=== PATIENT | female | born 1950 | race Caucasian/White ===

== ENCOUNTER 2017-08-01 22:35 | Observation (INO) | payer MEDICARE, BC ==
[2017-08-01 23:28] LABS: CKMB 2.8 ng/mL (0-6.6); Troponin I Less than 0.010 ng/mL (< 0.028)
[2017-08-02 01:44] VITALS: BMI 33.1
[2017-08-02 02:35] LABS: Troponin I 0.016 ng/mL (< 0.028)
[2017-08-02] MEDS ORDERED: Acetaminophen 325 MG TAB PO PRN (03:42)
[2017-08-02] MEDS ORDERED: Aspirin 325 MG TAB PO SCH ×2 (04:00→08:00)
[2017-08-02 05:22] LABS: Cardiac Risk 5.3 (Less than 4.5)
--- NOTE | 2017-08-02 06:46 | HP ---
REASON FOR ADMISSION: Chest pain. HISTORY OF PRESENT ILLNESS: The patient gives history of having retrosternal pressure seizure-like episodes lasting 15 minutes which started on Tuesday. She had nearly 3 episodes, which came on without any exertion. She did not feel good after these episodes. These continued on Tuesday and Tuesday as well. Yesterday evening, patient developed right-sided chest and numbness, which concerned her with ongoing retrosternal pressure. She has been taking aspirin from Tuesday daily. No complaints of palpitation, PND, or orthopnea. Currently , she has no chest pressure or numbness. She states she has had a stress test done 8 years back, which was negative as far she knows. No complaints of cough or expectoration. No history of fever. No palpitation, PND, or orthopnea. PAST MEDICAL AND SURGICAL HISTORY: Hypertension, hysterectomy, left knee surgery. CURRENT MEDICATIONS: Amlodipine 10 mg daily, Toprol-XL 100 mg q.a.m., hydrochlorothiazide 12.5 mg p.o. q.a.m. ALLERGIES: No known drug allergies. PERSONAL HISTORY: Does not abuse alcohol or drugs. No history of smoking. FAMILY HISTORY: Mother lived up to 72 years. She has had history of diabetes and coronary artery disease. Father of [place] at the age of 82 years. The patient lives with her . CODE STATUS: FULL. JASMYN is her . REVIEW OF SYSTEMS: The following complete review of systems was negative, unless otherwise mentioned in the HPI or below: Constitutional: Weight loss or gain, ability to conduct usual activities. Skin: Rash, itching. Eyes: Double vision, pain. ENT/Mouth: Nose bleeding, neck stiffness, pain, tenderness. Cardiovascular: Palpitations, dyspnea on exertion, orthopnea. Respiratory: Shortness of breath, wheezing, cough, hemoptysis, fever or night sweats. Gastrointestinal: Poor appetite, abdominal pain, heartburn, nausea, vomiting, constipation, or diarrhea. Genitourinary: Urgency, frequency, dysuria, nocturia. Musculoskeletal: Pain, swelling. Neurologic/Psychiatric: Anxiety, depression. Allergy/Immunologic: Skin rash, bleeding tendency. PHYSICAL EXAMINATION: GENERAL: The patient is a 66-year-old female who is currently not in any acute distress. VITAL SIGNS: Blood pressure 170/88, pulse 72 per minute, respiratory rate 16 per minute, temperature 98.4 degrees Fahrenheit, saturating 97% on room air. NECK: Supple. No elevated JVD. HEENT: Eyes: Extraocular muscles intact. Pupils reacting to light. Oral cavity mucous membranes are moist. No exudates or congestion. CARDIOVASCULAR: S1, S2 heard. Regular rhythm. RESPIRATORY: Air entry 2+ bilateral. No rales or rhonchi. ABDOMEN: Soft, bowel sounds heard. No tenderness, rigidity, or guarding. EXTREMITIES: No peripheral edema or calf tenderness. VASCULAR SYSTEM: Peripheral pulses 2+ bilateral. No ischemic ulcerations or gangrene. CENTRAL NERVOUS SYSTEM: No gross focal deficits seen. Patient is alert, awake , oriented well. PSYCHIATRIC: The patient's mood is euthymic. No hallucinations or delusions. LABORATORY AND X-RAY FINDINGS: Chest x-ray done shows no acute thoracic findings. EKG done shows sinus rhythm at 79 beats per minute. There are nonspecific ST-T wave changes. Troponin x3 is negative. CK-MB 3.5. CK level is 234, albumin is 4.6. Lipase is 35. Electrolytes are stable. BUN 11, creatinine 0.8. White count of 7, H and H 14 and 40, platelet count 240,000 with 50% neutrophils, MCV is 80. CLINICAL IMPRESSION AND PLAN: The patient will be under observation on telemetry for chest pain, rule out acute coronary syndrome. This appears to be atypical. She has nonspecific ST-T wave changes on the EKG. We will follow acute coronary syndrome evidence based protocol and obtain a nuclear stress test. We will also obtain lipid profile this morning. We will continue her home medications including Toprol, hydrochlorothiazide, and Norvasc along with full dose aspirin for now. MTDD
[2017-08-02 08:00] VITALS: TEMP 98.1
[2017-08-02] MEDS ORDERED: Hydrochlorothiazide 25 MG TAB PO SCH (09:00)
[2017-08-02] MEDS ORDERED: Famotidine 20 MG TAB PO SCH (09:00)
[2017-08-02] MEDS ORDERED: Amlodipine 10 MG TAB PO SCH (09:00)
[2017-08-02] MEDS ORDERED: Fenofibrate 48 MG TAB PO SCH (09:00)
[2017-08-02] MEDS ORDERED: Enoxaparin Sodium 40 MG/0.4 ML SYRINGE SC SCH (09:00)
[2017-08-02] MEDS ORDERED: ADENOSINE 60 MG/20 ML VIAL ONE (09:44)
[2017-08-02 13:19] VITALS: BP 148/73
--- NOTE | 2017-08-02 13:57 | NM ---
MYOCARDIAL PERFUSION STUDY: Date: 08-02-17 History: Chest pain. History of hypertension. Radiopharmaceuticals: 30 mCi Technetium 99M Sestamibi, IV at stress and 9.8 mCi Technetium 99M Sestam ibi, IV at rest. Medications: 18 ml (53 mg) Adenosine IV. FINDINGS: There is normal uptake of radiotracer within the left ventricular myocardium on stress acquisition. N o reversible defects are seen between stress and resting acquisitions. Gated images show a normal fazal tricular wall motion and wall thickening. The calculated left ventricular ejection fraction is 66%. IMPRESSION: 1. Normal myocardial perfusion study without evidence of a reversible defect seen to suggest ischemia . 2. Normal LVEF of 66%. POS: [facility]
--- NOTE | 2017-08-03 02:38 | DIS ---
DATE OF ADMISSION: 08/01/2017 DATE OF DISCHARGE: 08/02/2017 DISCHARGE DIAGNOSES: 1. Chest pain. 2. Triglycerides. 3. Hypertension. HOSPITAL COURSE: The patient is a very pleasant 66-year-old female who initially presented to the [facility] with chest pressure. Troponins x3 were negative. Patient underwent a stress test with nuclea r imaging, which was negative. Patient currently is chest pain free. She was noted to have an eleva ash triglycerides of 251. Recommended patient to diet, exercise, and recheck her triglycerides in ab out 3 months by her PCP. Patient will be discharged home, follow up with PCP. PHYSICAL EXAMINATION: VITAL SIGNS: Temperature 98.1, 70, 14, 93% room air, 128/70. GENERAL: She is awake, alert, oriented x3, does not appear in distress. CARDIOVASCULAR: S1, S2 present. No murmurs, rubs, or gallops. ABDOMEN: Soft, nontender. Bowel sounds are present x2. EXTREMITIES: No edema. DISCHARGE MEDICATIONS: Are as the following, 1. Amlodipine 10 mg daily. 2. Metoprolol 100 mg daily. 3. Hydrochlorothiazide 12.5 mg daily.
== END 2017-08-02 14:52 | disposition home or self-care (01) ==
LOC: ERS 22:35 → 2SW 23:43
PROVIDERS: ADMIT Internal Medicine; ATTEND Internal Medicine
DX: R07.9 Chest pain, unspecified (principal); I10 Essential (primary) hypertension; Z79.899 Other long term (current) drug therapy
CPT/HCPCS: 78452; 80061; 82553; 84484 ×2; 93005; 93017; 99285; A9500; G0378; 36415; J0153; J1650

== ENCOUNTER 2020-06-25 10:20 | Outpatient (CLI) | payer MEDICARE, BC ==
[2020-06-25 12:16] LABS: #Basophils 0.1 10x3/uL (0.0-0.2); #Monocytes 0.6 10x3/uL (0.0-1.1); #Neutrophils 3.8 10x3/uL (1.5-8.4); %Basophils 0.9 % (0.0-2.0); %Eosinophils 0.6 % (0.0-6.0); %Lymphocytes 31.3 % (18.0-47.0); %Monocytes 8.9 % (0.0-10.0); Hemoglobin 13.3 g/dL (12.0-15.5); Mean Corpuscular HGB CONC 31.6 g/dL (32.0-36.0); Mean Corpuscular Hemoglobin 27.6 pg (27.0-33.0); Mean Corpuscular Volume 87.3 fl (81.6-98.3); Mean Platelet Volume 11.4 fl (7.4-10.4); Platelet Count 266 10x3/uL (150-450); RBC Distribution Width 13.5 % (11.5-14.5); Red Blood Cell (RBC) Count 4.82 10x6/uL (3.90-5.03); White Blood Cell (WBC) Count 6.5 10x3/uL (3.5-10.5)
[2020-06-25 12:35] LABS: Anion Gap 17 mmol/L (10-20); BUN (Urea Nitrogen) 15 mg/dL (9.8-20.1); Calc. Creatinine Clearance 0 mL/min (70-130); Calcium 9.7 mg/dL (7.8-10.44); Carbon Dioxide 28 mmol/L (23-31); Chloride 101 mmol/L (98-107); Glucose 98 mg/dL (83-110); Potassium 4.2 mmol/L (3.5-5.1); Sodium 142 mmol/L (136-145)
[2020-06-25 12:36] LABS: Prothrombin Time 10.8 sec (9.5-12.1)
[2020-06-25 12:42] LABS: Bilirubin Neg (Negative); Blood, Urine 10 (Negative); Clarity Clear (Clear); Glucose, Urine (Dipstick) Normal (Negative); Ketone, Urine Negative (Negative); Leukocyte Negative (Negative); Nitrite Negative (Negative); Protein, Urine (Dipstick) Negative (Neg-Trace); Specific Gravity, Urine 1.005 (1.002-1.036); Urobilinogen Normal mg/dL (Less than 2)
[2020-06-25 13:12] LABS: Bacteria/HPF None Seen HPF (None Seen); RBC/HPF 0-3 HPF (0-3); Squamous Epithelial None Seen HPF (0-3); WBC/HPF None Seen HPF (0-3)
[2020-06-25 18:21] LABS: SARS-CoV-2 PCR by NAA Not Detected (NotDetected)
== END 2020-06-25 10:21 | disposition home or self-care (01) ==
LOC: LABBT 10:20
PROVIDERS: ATTEND Orthopaedic Surgery
DX: Z01.818 Encounter for other preprocedural examination (principal); Z20.822 Contact with and (suspected) exposure to COVID-19; M17.12 Unilateral primary osteoarthritis, left knee
CPT/HCPCS: 80048; 81001; 85025; 85610; 87081; 93005; U0003; U0005; 87635; 93010

== ENCOUNTER 2020-06-30 05:33 | Inpatient (IN) | payer MEDICARE, BC ==
[2020-06-27 12:11] VITALS: BMI 34.2
[2020-06-30] MEDS ORDERED: Vancomycin 1.5 GRAM/300 ML BAG 1.5 GM in Premix Bag 1 BAG IVPB SCH (06:15)
[2020-06-30] MEDS ORDERED: Midazolam HCl 2 mg/2 ml Vial ONE (06:39)
[2020-06-30] MEDS ORDERED: Fentanyl 100 MCG/2 ML VIAL ONE ×3 (06:39→08:37)
[2020-06-30] MEDS ORDERED: Lidocaine 1% (PF) 30 ML VIAL ONE (06:45)
[2020-06-30] MEDS ORDERED: Tranexamic Acid 1,000 MG/10 ML VIAL ONE (06:52)
[2020-06-30] MEDS ORDERED: Sodium Chloride 0.9% 100 ML ONE (06:53)
[2020-06-30] MEDS ORDERED: Fat Emulsion 250 ML ONE (06:56)
[2020-06-30] MEDS ORDERED: diphenhydrAMINE 25 MG CAP PO PRN (07:04)
[2020-06-30] MEDS ORDERED: Acetaminophen 325 MG TAB PO PRN (07:04)
[2020-06-30] MEDS ORDERED: Zolpidem Tartrate 5 MG TAB PO PRN ×2 (07:04→09:30)
[2020-06-30] MEDS ORDERED: Ondansetron PF 4 MG/2 ML Vial IVP PRN ×2 (07:04→09:30)
[2020-06-30] MEDS ORDERED: Promethazine HCl 25 MG/ML VIAL IM PRN ×3 (07:04→10:33)
[2020-06-30] MEDS ORDERED: HYDROcodone/Acetaminophen 10/325 mg Tablet PO PRN ×4 (07:04→09:30)
[2020-06-30] MEDS ORDERED: Fentanyl 100 MCG/2 ML VIAL SLOW IVP PRN ×2 (07:04)
[2020-06-30] MEDS ORDERED: Sodium Chloride 0.9% 10 ML ONE (07:17)
[2020-06-30] MEDS ORDERED: Ropivacaine 0.5% HCl/PF (150 MG/30 ML VIAL) ONE (07:46)
[2020-06-30] MEDS ORDERED: PROPOFOL 200 MG/20 ML VIAL ONE (07:46)
[2020-06-30] MEDS ORDERED: Dexamethasone 20 MG/5 ML VIAL ONE (07:46)
[2020-06-30] MEDS ORDERED: Ropivacaine 2% HCl/PF (20 MG/10 ML VIAL) ONE (07:46)
[2020-06-30] MEDS ORDERED: PHENYLEPHRINE-NS 100 MCG/ML 10 ML SYRINGE ONE (07:46)
[2020-06-30] MEDS ORDERED: Ketorolac Tromethamine 30 MG/ML VIAL ONE (07:46)
[2020-06-30] MEDS ORDERED: Ondansetron PF 4 MG/2 ML Vial ONE (07:46)
[2020-06-30] MEDS ORDERED: traMADol HCl 50 MG TAB PO PRN (09:30)
[2020-06-30] MEDS ORDERED: Ropivacaine HCl/PF 250 ML in Premix Bag 1 BAG NERVE BLCK SCH (09:30)
[2020-06-30] MEDS ORDERED: Fentanyl 100 MCG/2 ML VIAL IV PRN (09:30)
[2020-06-30] MEDS ORDERED: Promethazine HCl 25 MG/ML VIAL SLOW IVP PRN (10:33)
[2020-06-30] MEDS ORDERED: PACU-Morphine 4MG/ML VIAL SLOW IVP PRN (10:33)
[2020-06-30] MEDS ORDERED: Ketorolac Tromethamine 30 MG/ML VIAL IVP SCH (14:00)
[2020-06-30] MEDS: CEFAZOLIN 2 GM in Premix Bag 1 BAG IVPB SCH ×2 (14:07→21:31)
[2020-06-30] MEDS: Sodium Chloride 0.9% 1,000 ML IV SCH ×2 (14:08→20:12)
[2020-06-30] MEDS: Ketorolac Tromethamine 30 MG/ML VIAL IVP SCH ×3 (14:08→23:58)
[2020-06-30] MEDS: Amlodipine 10 MG TAB PO SCH (14:09)
[2020-06-30] MEDS: Hydrochlorothiazide 25 MG TAB PO SCH (20:11)
[2020-06-30] MEDS: Aspirin 81 mg Enteric Coated Tablet PO SCH ×2 (20:11→21:30)
[2020-06-30] MEDS: traMADol HCl 50 MG TAB PO PRN (21:29)
[2020-06-30] MEDS: Rosuvastatin 20 MG TAB PO SCH (21:30)
[2020-07-01] MEDS: Sodium Chloride 0.9% 1,000 ML IV SCH ×3 (02:04→22:45)
[2020-07-01] MEDS: Ketorolac Tromethamine 30 MG/ML VIAL IVP SCH ×4 (05:31→23:03)
[2020-07-01 05:57] LABS: Hemoglobin 11.3 g/dL (12.0-16.0); Mean Corpuscular HGB CONC 32.8 g/dL (32.0-36.0); Mean Corpuscular Hemoglobin 28.4 pg (27.0-31.0); Mean Corpuscular Volume 86.6 fL (78.0-98.0); Mean Platelet Volume 8.7 fL (7.4-10.4); Platelet Count 232 thou/uL (130-400); RBC Distribution Width 12.6 % (11.5-14.5); Red Blood Cell (RBC) Count 3.97 mill/uL (4.20-5.40)
[2020-07-01] MEDS: Aspirin 81 mg Enteric Coated Tablet PO SCH ×2 (09:11→20:49)
[2020-07-01] MEDS: Ferrous Gluconate 324 MG TAB PO SCH ×2 (09:11→18:30)
[2020-07-01] MEDS: Multivitamin W/ Minerals 1 TAB PO SCH (09:12)
[2020-07-01] MEDS: Senokot S 8.6-50 MG TAB PO SCH ×2 (09:12→20:50)
[2020-07-01] MEDS: Amlodipine 10 MG TAB PO SCH ×2 (09:13→18:41)
[2020-07-01] MEDS: Hydrochlorothiazide 25 MG TAB PO SCH (09:14)
[2020-07-01] MEDS: Rosuvastatin 20 MG TAB PO SCH (20:49)
[2020-07-02] MEDS: traMADol HCl 50 MG TAB PO PRN ×2 (00:56→13:23)
[2020-07-02] MEDS: Ketorolac Tromethamine 30 MG/ML VIAL IVP SCH (05:34)
[2020-07-02] MEDS: Aspirin 81 mg Enteric Coated Tablet PO SCH (09:05)
[2020-07-02] MEDS: Senokot S 8.6-50 MG TAB PO SCH (09:05)
[2020-07-02] MEDS: Amlodipine 10 MG TAB PO SCH (09:05)
[2020-07-02] MEDS: Hydrochlorothiazide 25 MG TAB PO SCH (09:05)
[2020-07-02] MEDS: Multivitamin W/ Minerals 1 TAB PO SCH (09:06)
[2020-07-02] MEDS: Ferrous Gluconate 324 MG TAB PO SCH (09:06)
[2020-07-02] MEDS: Sodium Chloride 0.9% 1,000 ML IV SCH (10:02)
[2020-07-02 11:55] VITALS: BP 127/79; TEMP 98.4
== END 2020-07-02 14:46 | disposition home or self-care (01) | DRG 470 ==
LOC: SDC 05:33 → SURG B 07:04
PROVIDERS: ADMIT Orthopaedic Surgery; ATTEND Orthopaedic Surgery
PROC: 0SRD0J9 Replacement of Left Knee Joint with Synthetic Substitute, Cemented, Open Approach (ICD-10-PCS; principal; 2020-06-30)
DX: M17.12 Unilateral primary osteoarthritis, left knee (principal); Z20.822 Contact with and (suspected) exposure to COVID-19; I10 Essential (primary) hypertension; G56.00 Carpal tunnel syndrome, unspecified upper limb; R32 Unspecified urinary incontinence; E78.5 Hyperlipidemia, unspecified; K21.9 Gastro-esophageal reflux disease without esophagitis; Z98.51 Tubal ligation status; Z90.710 Acquired absence of both cervix and uterus; Z79.899 Other long term (current) drug therapy
CPT/HCPCS: 36415; 85027; 93005; 93010; C1713; C1776; J0690; J1100; J1885; J2001; J2250; J2405; J2704; J2795; J3010; J3370; J3490